=== PATIENT | female | born 2000 | race Caucasian/White ===

== ENCOUNTER 2020-09-04 20:07 | Emergency (ER) | payer OTHER, SELFPAY ==
--- NOTE | ~2020-09-04 | US_ITS ---
EXAMINATION: US OBSTETRICAL ULTRASOUND CLINICAL INFORMATION: Right lower quadrant pain. History of ectopic . COMPARISON: None. LMP: Unknown. TECHNIQUE: Transabdominal and endovaginal sonographic evaluation of the pelvis. FINDINGS: Uterine size measures 6.3 x 1.5 x 4.2 cm. Thickened endometrium measuring 1.7 cm. There is no intrauterine identified. MATERNAL ADNEXA: The right maternal ovary measures 2.9 x 1.5 x 2.3 cm. No adnexal mass. The left maternal ovary measures 3.1 x 2.4 x 2.5 cm. No adnexal mass. Trace ascites. US/US OB transvaginal IMPRESSION: No intrauterine identified. Thickening of the endometrium present. This may be secondary to early . No adnexal mass/ectopic identified at this time. Continued close follow-up.
--- NOTE | ~2020-09-04 | US_ITS ---
EXAMINATION: US OBSTETRICAL ULTRASOUND CLINICAL INFORMATION: Right lower quadrant pain. History of ectopic . COMPARISON: None. LMP: Unknown. TECHNIQUE: Transabdominal and endovaginal sonographic evaluation of the pelvis. FINDINGS: Uterine size measures 6.3 x 1.5 x 4.2 cm. Thickened endometrium measuring 1.7 cm. There is no intrauterine identified. MATERNAL ADNEXA: The right maternal ovary measures 2.9 x 1.5 x 2.3 cm. No adnexal mass. The left maternal ovary measures 3.1 x 2.4 x 2.5 cm. No adnexal mass. Trace ascites. US/US OB <= 14 weeks fetus IMPRESSION: No intrauterine identified. Thickening of the endometrium present. This may be secondary to early . No adnexal mass/ectopic identified at this time. Continued close follow-up.
[2020-09-04 20:10] VITALS: BP 132/77; PULSE 86; RESP 16; TEMP 36.6; O2SAT 98; BMI 26.6
[2020-09-04 20:28] LABS: Appearance Urine CLEAR; Color Urine YELLOW; Glucose Urine UA NEG (NEG); Leukocyte Esterase Urine NEG (NEG); Nitrite Urine NEG (NEG); Specific Gravity - Urine >= 1.030 (1.005-1.025); Urine Blood NEG (NEG); Urine Ketones NEG (NEG); Urine Protein NEG (NEG-TRACE)
[2020-09-04 20:29] LABS: UPreg QC Valid YES; Urine Pregnancy POSITIVE (NEGATIVE)
[2020-09-04 22:30] VITALS: BP 131/86; PULSE 86; RESP 16; O2SAT 99
--- NOTE | 2020-09-04 23:45 | ED_ITS ---
HPI - Fall General Chief Complaint: Fall Stated Complaint: fall down stairs () Time Seen by Provider: 09/04/20 23:14 Source: patient Mode of arrival: ambulatory Limitations: no limitations History of Present Illness HPI Narrative: Patient comes emergency room complaining of bilateral knee pain. Patient states she tripped on her ?[employer] mat , then fell down the stairs. Patient states she landed on her knees, patient was able to get herself up, complaining of bruising in both knees. Patient states that she has noticed that for the last few days, she has been very cranky, has not gotten her period, took a home test which was positive. Patient denies vaginal bleeding or discharge Related Data Allergies Allergy/AdvReac Type Severity Reaction Status Date / Time No Known Allergies Allergy Unverified 09/04/20 20:16 [No Known Allergies*] FORMERLY [facility] Past Medical History Medical History (Updated 09/05/20 @ 02:51 by Kath Hankins MD) No known health problems Social History Social History Advance Directives: No Advance Directives Information Provided: No Patient : Yes Physical Exam Vital Signs: Vital Signs: Last Vital Signs Temp 97.8 F 09/04/20 20:10 Pulse 75 09/05/20 01:20 Resp 14 09/05/20 01:20 BP 107/70 09/05/20 01:20 Pulse Ox 100 09/05/20 01:20 Body Mass Index 26.6 Course Course Course Narrative: I went to discuss the ultrasound findings with the patient, however I noticed that the patient was not in the room. I was informed by the patient's nurse that the patient eloped. MDM - Fall Lab Data Result diagrams: 09/04/20 23:54 09/04/20 23:54 Labs: Lab Results 09/04/20 09/04/20 09/04/20 Range/Units 20:21 20:21 23:54 WBC 11.7 H (4.8-10.8) X10*3/uL RBC 4.51 (4.20-5.50) X10*6/uL Hgb 13.3 (12.0-16.0) g/dl Hct 39.5 (37-47) % MCV 87.6 (80-98) fL MCH 29.5 (27.0-33.0) pg MCHC 33.7 (31.0-35.0) g/dl RDW 12.3 (11.0-16.0) % Plt Count 287 (160-400) X10*3/uL MPV 9.6 (9.4-12.3) fL Immature Gran % (Auto) 0.3 (0.0-0.4) % Neut % (Auto) 61.5 (45-73) % Lymph % (Auto) 30.7 (20-40) % [place] % (Auto) 6.4 (2-11) % Eos % (Auto) 0.9 (0-4) % Baso % (Auto) 0.2 (0-2) % Lymph # (Auto) 3.6 (1.2-4.9) X10*3/uL [place] # (Auto) 0.8 (0.1-1.2) X10*3/uL Eos # (Auto) 0.1 (0.0-0.4) X10*3/uL Baso # (Auto) 0.0 (0.0-0.2) X10*3/uL Abs Immat Gran (auto) 0.03 (0.00-0.03) X10*3/uL Absolute Neuts (auto) 7.2 (2.0-8.3) X10*3/uL Absolute Nucleated RBC 0.000 (0.0-0.012) X10*3/uL Nucleated RBC % (auto) 0.0 (0.0-0.2) /100WBC Sodium (135-145) mmol/L Potassium (3.3-5.1) mmol/L Chloride (96-108) mmol/L Carbon Dioxide (22-29) mmol/L Anion Gap (12-20) BUN (9-16) mg/dL Creatinine (0.5-1.4) mg/dL Estim Creat Clear Calc Estimated GFR Random Glucose (60-115) mg/dL Calcium (8.4-10.2) mg/dL Total Bilirubin (0.0-1.0) mg/dL Direct Bilirubin (0.0-0.5) mg/dL AST (5-31) U/L ALT (0-31) U/L Alkaline Phosphatase (39-117) U/L Total Protein (6.5-8.0) g/dL Albumin (3.5-5.0) g/dL Beta HCG, Quant mIU/mL Urine Color YELLOW Urine Appearance CLEAR Urine pH 6.0 (5.0-8.0) Ur Specific [place] >= 1.030 H (1.005-1.025) Urine Protein NEG (NEG-TRACE) MG/DL Urine Glucose (UA) NEG (NEG) MG/DL Urine Ketones NEG (NEG) MG/DL Urine Blood NEG (NEG) Urine Nitrite NEG (NEG) Ur Leukocyte Esterase NEG (NEG) Urine Test POSITIVE H (NEGATIVE) Blood Type 09/04/20 09/04/20 Range/Units 23:54 23:54 WBC (4.8-10.8) X10*3/uL RBC (4.20-5.50) X10*6/uL Hgb (12.0-16.0) g/dl Hct (37-47) % MCV (80-98) fL MCH (27.0-33.0) pg MCHC (31.0-35.0) g/dl RDW (11.0-16.0) % Plt Count (160-400) X10*3/uL MPV (9.4-12.3) fL Immature Gran % (Auto) (0.0-0.4) % Neut % (Auto) (45-73) % Lymph % (Auto) (20-40) % [place] % (Auto) (2-11) % Eos % (Auto) (0-4) % Baso % (Auto) (0-2) % Lymph # (Auto) (1.2-4.9) X10*3/uL [place] # (Auto) (0.1-1.2) X10*3/uL Eos # (Auto) (0.0-0.4) X10*3/uL Baso # (Auto) (0.0-0.2) X10*3/uL Abs Immat Gran (auto) (0.00-0.03) X10*3/uL Absolute Neuts (auto) (2.0-8.3) X10*3/uL Absolute Nucleated RBC (0.0-0.012) X10*3/uL Nucleated RBC % (auto) (0.0-0.2) /100WBC Sodium 136 (135-145) mmol/L Potassium 3.7 (3.3-5.1) mmol/L Chloride 103 (96-108) mmol/L Carbon Dioxide 25 (22-29) mmol/L Anion Gap 12 (12-20) BUN 12 (9-16) mg/dL Creatinine 0.67 (0.5-1.4) mg/dL Estim Creat Clear Calc 132.5 Estimated GFR > 60 Random Glucose 90 (60-115) mg/dL Calcium 9.6 (8.4-10.2) mg/dL Total Bilirubin 0.8 (0.0-1.0) mg/dL Direct Bilirubin 0.3 (0.0-0.5) mg/dL AST 11 (5-31) U/L ALT 12 (0-31) U/L Alkaline Phosphatase 79 (39-117) U/L Total Protein 7.9 (6.5-8.0) g/dL Albumin 4.8 (3.5-5.0) g/dL Beta HCG, Quant 225 mIU/mL Urine Color Urine Appearance Urine pH (5.0-8.0) Ur Specific [place] (1.005-1.025) Urine Protein (NEG-TRACE) MG/DL Urine Glucose (UA) (NEG) MG/DL Urine Ketones (NEG) MG/DL Urine Blood (NEG) Urine Nitrite (NEG) Ur Leukocyte Esterase (NEG) Urine Test (NEGATIVE) Blood Type B Positive Imaging Data US - abdomen: Radiologist's impression: FINDINGS: Uterine size measures 6.3 x 1.5 x 4.2 cm. Thickened endometrium measuring 1.7 cm. There is no intrauterine identified. MATERNAL ADNEXA: The right maternal ovary measures 2.9 x 1.5 x 2.3 cm. No adnexal mass. The left maternal ovary measures 3.1 x 2.4 x 2.5 cm. No adnexal mass. Trace ascites. US/US OB <= 14 weeks fetus IMPRESSION: No intrauterine identified. Thickening of the endometrium present. This may be secondary to early . No adnexal mass/ectopic identified at this time. Continued close follow-up. Discharge Plan Discharge Clinical Impression: Bilateral knee pain, Contusion, Patient Disposition: Elopement Discharge Date/Time: 09/05/20 02:47
[2020-09-04 23:59] LABS: MANUAL DIFF FLAG NO
[2020-09-05] LABS: Basophils Percent Auto 0.2 % (0-2); Eosinophils Absolute Auto 0.1 X10*3/uL (0.0-0.4); Eosinophils Percent Auto 0.9 % (0-4); Hematocrit 39.5 % (37-47); Hemoglobin 13.3 g/dl (12.0-16.0); Imm Gran Abs Auto 0.03 X10*3/uL (0.00-0.03); Imm Gran Pct Auto 0.3 % (0.0-0.4); Lymphocytes Absolute Auto 3.6 X10*3/uL (1.2-4.9); Lymphocytes Percent Auto 30.7 % (20-40); Mean Corpuscular HGB Conc 33.7 g/dl (31.0-35.0); Mean Corpuscular Hemoglobin 29.5 pg (27.0-33.0); Mean Corpuscular Volume 87.6 fL (80-98); Mean Platelet Volume 9.6 fL (9.4-12.3); Monocytes Absolute Auto 0.8 X10*3/uL (0.1-1.2); Monocytes Percent Auto 6.4 % (2-11); Neutrophils Absolute Auto 7.2 X10*3/uL (2.0-8.3); Neutrophils Percent Auto 61.5 % (45-73); Platelet Count 287 X10*3/uL (160-400); Red Blood Count 4.51 X10*6/uL (4.20-5.50); Red Cell Distribution Width 12.3 % (11.0-16.0); White Blood Count 11.7 X10*3/uL (4.8-10.8)
[2020-09-05 00:35] LABS: Alanine Aminotransferase 12 U/L (0-31); Albumin Level 4.8 g/dL (3.5-5.0); Alkaline Phosphatase 79 U/L (39-117); Anion Gap 12 (12-20); Aspartate Amino Transferase 11 U/L (5-31); Bilirubin Direct 0.3 mg/dL (0.0-0.5); Bilirubin Total 0.8 mg/dL (0.0-1.0); Blood Urea Nitrogen 12 mg/dL (9-16); Calcium 9.6 mg/dL (8.4-10.2); Carbon Dioxide 25 mmol/L (22-29); Chloride 103 mmol/L (96-108); Creatinine Clr Calc Pharmacy 132.5; Estimated Glomerular Filt Rate > 60; Glucose Random 90 mg/dL (60-115); Potassium 3.7 mmol/L (3.3-5.1); Sodium 136 mmol/L (135-145); Total Protein 7.9 g/dL (6.5-8.0)
[2020-09-05 00:42] LABS: HCG Quantitative 225 mIU/mL
[2020-09-05 01:20] VITALS: BP 107/70; PULSE 75; RESP 14; O2SAT 100
--- NOTE | 2020-09-05 02:47 | PC.NURSE ---
pt was found to have elloped by rn and platen press [employer]. cueva on bed. personal belongings removed from room.
== END 2020-09-05 02:47 | disposition left against medical advice (07) ==
PROVIDERS: Emergency Medicine; Emergency Provider Emergency Medicine
DX: O9A.211 Injury, poisoning and certain other consequences of external causes complicating pregnancy, first trimester (principal); S80.02XA Contusion of left knee, initial encounter; S80.01XA Contusion of right knee, initial encounter; W10.8XXA Fall (on) (from) other stairs and steps, initial encounter; M25.562 Pain in left knee; M25.561 Pain in right knee; Z3A.01 Less than 8 weeks gestation of pregnancy; Y93.89 Activity, other specified; Y92.018 Other place in single-family (private) house as the place of occurrence of the external cause; Y99.9 Unspecified external cause status
CPT/HCPCS: 36415; 76801; 76817; 80048; 80076; 81003; 81025; 84702; 85025; 86900; 86901; 99283; 99284